=== PATIENT | male | born 1945 | race Caucasian/White ===

== ENCOUNTER 2016-07-30 12:35 | Emergency (ER) | payer OTHER ==
--- NOTE | 2016-08-07 18:56 | ER ---
ADMIT: 07/30/2016 RM/LOC: ER [facility] MR#: [id number] [facility] [address] [place], [place] [id number] [address] [place] [address] [id number] Emergency Room Report SEX: M AGE: 70 : 1945 DATE: 07/30/2016 This is a 70-year-old white male, [facility], initially they were afraid he was short of breath. He was a little tachy, but they had given him a treatment. He thinks when they switched the O2 levels, they were out of oxygen. When he got here, he has been 100%, 99 on his normal couple of liters. They had done blood work over there, that was negative. I did a chest x-ray along with a left hip and pelvis. Chest is indicative of COPD. Left hip and pelvis were negative. However, his pain appears to be trochanteric bursitis or ischial bursitis. I have suggested he follow up with Ortho for this. He is going back to [place] where he normally lives and he just came [facility] for the [facility] check, periodic check. CONDITION ON DISCHARGE: Fair. David Negrete MD/ spencer JOB #: [id number] CC: David Negrete MD, Attending Physician [facility] Physician, Family Physician
== END 2016-07-30 15:04 | disposition home or self-care (01) ==
LOC: ER 12:35
DX: J44.9 Chronic obstructive pulmonary disease, unspecified (principal); M70.62 Trochanteric bursitis, left hip; K21.9 Gastro-esophageal reflux disease without esophagitis; F43.10 Post-traumatic stress disorder, unspecified; Z87.891 Personal history of nicotine dependence; Z88.1 Allergy status to other antibiotic agents; Z88.8 Allergy status to other drugs, medicaments and biological substances; Z79.899 Other long term (current) drug therapy